=== PATIENT | female | born 1960 | race African-American/Black ===

== ENCOUNTER 2018-11-01 16:19 | Emergency (ER) | payer OTHER ==
--- NOTE | 2018-11-01 16:56 | PDOC ---
Rapid Medical Evaluation Time Seen by Provider: 11/01/18 16:55 Medical Evaluation: Allergies Allergy/AdvReac Type Severity Reaction Status Date / Time ciprofloxacin [From Cipro] Allergy Verified 05/08/18 08:47 11/01/18 16:55 I have performed a brief in-person evaluation of this patient. The patient presents with a chief complaint of:urinary freq w/ hematuria that started several hrs ago. No flank pain, n/v/f/c. H/o utis Pertinent physical exam findings:stable I have ordered the following:ua/ucx The patient will proceed to the ED for further evaluation. Discharge Disposition - Diagnosis Dysuria - Referrals - Patient Instructions - Post Discharge Activity
[2018-11-01 16:59] VITALS: BP 148/80; PULSE 74; TEMP 99.1; BMI 25.4
--- NOTE | 2018-11-01 17:19 | PDOC ---
History of Present Illness - General Chief Complaint: Urinary Problem Stated Complaint: URINARY BURNING Time Seen by Provider: 11/01/18 16:55 History Source: Patient - History of Present Illness Initial Comments: 11/01/18 18:00 58 year old female with dysuria, hematuria and frequency of urination since this afternoon. denies fever/ chills, nausea, vomiting, flank pain Past History - Past Medical History Allergies/Adverse Reactions: Allergies Allergy/AdvReac Type Severity Reaction Status Date / Time ciprofloxacin [From Cipro] Allergy Verified 11/01/18 16:56 Home Medications: Ambulatory Orders Atorvastatin Ca [Lipitor] 20 mg PO HS 03/28/16 Omeprazole [Prilosec (RX)] 20 mg PO DAILY 03/28/16 Phenazopyridine HCl [Pyridium] 100 mg PO TID PRN #6 tablet 11/01/18 Anemia: No Asthma: No Cancer: No Cardiac Disorders: No CVA: No COPD: No CHF: No Dementia: No Diabetes: No GI Disorders: Yes (GERD) Disorders: No HTN: No Hypercholesterolemia: No Liver Disease: No Seizures: No Thyroid Disease: No - Surgical History Abdominal Surgery: Yes (HERNIA X3) Appendectomy: Yes Cardiac Surgery: No Cholecystectomy: No Lung Surgery: No Neurologic Surgery: No Orthopedic Surgery: No - Immunization History Immunization Up to Date: Yes - Suicide/Smoking/Psychosocial Hx Smoking History: Former smoker Have you smoked in the past 12 months: No Information on smoking cessation initiated: No Hx Alcohol Use: No Drug/Substance Use Hx: No Substance Use Type: None Hx Substance Use Treatment: No Review of Systems - Review of Systems Able to Perform ROS?: Yes Is the patient limited Mozambican proficient: No Constitutional: No: Symptoms Reported, See HPI, Chills, Diaphoresis, Fever, Loss of Appetite, Malaise, Night Sweats, Weakness, Weight Stable, Unintentional Wgt. Loss, Unexplained wgt Loss, Other : Yes: Burning, Dysuria, Frequency, Hematuria. No: Symptoms Reported, See HPI , Discharge, Flank Pain, Incontinence, Pain, Urgency, Testicular Mass, Testicular Swelling, Lesions, Testicular Pain, Other *Physical Exam - Vital Signs Last Vital Signs Temp Pulse Resp BP Pulse Ox 99.1 F 74 19 148/80 96 11/01/18 16:56 11/01/18 16:56 11/01/18 16:56 11/01/18 16:56 11/01/18 16:56 - Physical Exam General Appearance: Yes: Appropriately Dressed Gastrointestinal/Abdominal: positive: Normal Bowel Sounds, Soft. negative: Tender Musculoskeletal: positive: Normal Inspection. negative: CVA Tenderness Moderate Sedation - Procedure Monitoring Vital Signs: Procedure Monitoring Vital Signs Temperature 99.1 F 11/01/18 16:56 Pulse Rate 74 11/01/18 16:56 Respiratory Rate 19 11/01/18 16:56 Blood Pressure 148/80 11/01/18 16:56 O2 Sat by Pulse Oximetry (%) 96 11/01/18 16:56 *DC/Admit/Observation/Transfer Diagnosis at time of Disposition: Cystitis - Discharge Dispostion Disposition: HOME - Prescriptions Prescriptions: Phenazopyridine HCl [Pyridium] 100 mg PO TID PRN #6 tablet PRN Reason: dysuria - Referrals Referrals: Violet Rose [Primary Care Provider] - - Patient Instructions Printed Discharge Instructions: Acute Cystitis Additional Instructions: drink plenty of fluids take pyridium as prescribed. take cefuroxime as prescribed follow up with your doctor as soon as possible. Additional Instructions: * Please call your personal physician to report your Emergency Department visit and to report your progress, if any. * If there is no improvement in symptoms in 2 days call your physician. * Return to the Emergency Department for any worsening symptoms. - Post Discharge Activity Forms/Work/School Notes: Back to Work
[2018-11-01] MEDS ORDERED: PHENAZOPYRIDINE HCL 100 MG TABLET (FP) PO ONE (17:23)
[2018-11-01] MEDS ORDERED: PHENAZOPYRIDINE HCL 100 MG TABLET (FP) ONE (17:26)
[2018-11-01 17:37] LABS: URINE APPEARANCE CLOUDY; URINE BILIRUBIN NEGATIVE (<2.0 mg/dL); URINE COLOR AMBER; URINE GLUCOSE (UA) NEGATIVE (NEGATIVE); URINE KETONE NEGATIVE (NEGATIVE); URINE LEUK ESTERASE 2+ (NEGATIVE); URINE NITRITE NEGATIVE (NEGATIVE); URINE PROTEIN 2+ (NEGATIVE)
[2018-11-01 17:54] LABS: EPI CELLS RARE /HPF (FEW); URINE MUCUS RARE; YEAST FEW
[2018-11-01] MEDS ORDERED: CEFUROXIME AXETIL 500 MG TABLET PO ONE (18:00)
== END 2018-11-01 18:09 | disposition home or self-care (01) ==
LOC: JERFT 16:19
DX: N30.00 Acute cystitis without hematuria (principal)
CPT/HCPCS: 81003; 81015; 87086; 87186; 99281-25

== ENCOUNTER 2019-02-13 09:56 | Emergency (ER) | payer OTHER ==
[2019-02-13 10:03] VITALS: BP 116/74; PULSE 65; TEMP 99.1; BMI 25.2
[2019-02-13] MEDS ORDERED: CYCLOBENZAPRINE HCL 10 MG TABLET (FP) PO ONE (10:22)
[2019-02-13] MEDS ORDERED: KETOROLAC TROMETHAMINE 60 MG/2 ML VIAL IM ONE (10:22)
[2019-02-13] MEDS ORDERED: KETOROLAC TROMETHAMINE 60 MG/2 ML VIAL ONE (10:23)
[2019-02-13] MEDS ORDERED: CYCLOBENZAPRINE HCL 10 MG TABLET (FP) ONE (10:23)
--- NOTE | 2019-02-13 10:32 | PDOC ---
History of Present Illness - General Chief Complaint: Headache Stated Complaint: HEADACHE Time Seen by Provider: 02/13/19 10:12 History Source: Patient Exam Limitations: No Limitations - History of Present Illness Initial Comments: 02/13/19 12:01 Patient came to emergency department with complaints of 3-4 days of headache pain. is primarily on the right side but moves over top of scalp intermittently. has some mild ear pain as well. Denies numbness or tingling to hands or feet, denies any mental status changes or any neurologic symptoms. does not suffer from headaches, denies any recent URI symptoms or fever, denies any recent exercise changes or activity but feels has been under stress with both of her jobs. Has taken ibuprofen with some mild resolve Timing/Duration: reports: waxing and waning Severity: Yes: moderate Associated Symptoms: reports: denies symptoms, fever/chills. denies: loss of consciousness Past History - Travel Traveled outside of the country in the last 30 days: No Close contact w/someone who was outside of country & ill: No - Past Medical History Allergies/Adverse Reactions: Allergies Allergy/AdvReac Type Severity Reaction Status Date / Time ciprofloxacin [From Cipro] Allergy Verified 11/01/18 16:56 Home Medications: Ambulatory Orders Cyclobenzaprine HCl 10 mg PO Q8H PRN #14 tablet 02/13/19 Naproxen [Naprosyn -] 500 mg PO BID #30 tablet 02/13/19 Anemia: No Asthma: No Cancer: No Cardiac Disorders: No CVA: No COPD: No CHF: No Dementia: No Diabetes: No GI Disorders: Yes (GERD) Disorders: No HTN: No Hypercholesterolemia: No Liver Disease: No Seizures: No Thyroid Disease: No - Surgical History Abdominal Surgery: Yes (HERNIA X3) Appendectomy: Yes Cardiac Surgery: No Cholecystectomy: No Lung Surgery: No Neurologic Surgery: No Orthopedic Surgery: No - Immunization History Immunization Up to Date: Yes - Suicide/Smoking/Psychosocial Hx Smoking History: Never smoked Have you smoked in the past 12 months: No Information on smoking cessation initiated: No Hx Alcohol Use: No Drug/Substance Use Hx: No Substance Use Type: None Hx Substance Use Treatment: No Neuro Specific PMHX - Complaint Specific PMHX Glaucoma: No Herniated Disk: No Laminectomy: No Migraine: No Review of Systems - Review of Systems Able to Perform ROS?: Yes Is the patient limited Mauritanian proficient: Yes Constitutional: Yes: Symptoms Reported, See HPI, Malaise. No: Chills, Fever HEENTM: Yes: See HPI, Nose Congestion. No: Symptoms Reported, Eye Pain Respiratory: Yes: See HPI. No: Symptoms reported Musculoskeletal: Yes: Symptoms Reported, See HPI, Back Pain, Joint Pain, Muscle Pain Integumentary: Yes: See HPI. No: Symptoms Reported Neurological: Yes: See HPI, Headache. No: Symptoms reported All Other Systems: Reviewed and Negative *Physical Exam - Vital Signs Last Vital Signs Temp Pulse Resp BP Pulse Ox 99.1 F 65 16 116/74 100 02/13/19 10:01 02/13/19 10:01 02/13/19 10:01 02/13/19 10:01 02/13/19 10:01 - Physical Exam General Appearance: Yes: Nourished, Appropriately Dressed, Apparent Distress, Mild Distress, Moderate Distress HEENT: positive: LANCE, Normal ENT Inspection, TMs Normal, Pharynx Normal Neck: positive: Tender, Supple Respiratory/Chest: positive: Lungs Clear, Normal Breath Sounds Gastrointestinal/Abdominal: positive: Soft. negative: Tender Musculoskeletal: positive: Normal Inspection, Muscle Spasm (tight tense musculature to the sternocleidomastoid muscles, pain to head/headache pain is reproduced with pressure at occiput at insertion of SCM, worse on the right than the left.). negative: CVA Tenderness Extremity: positive: Normal Capillary Refill, Normal Inspection, Normal Range of Motion Integumentary: positive: Dry, Warm, Pale Neurologic: positive: experimental box tester II-XII NML intact, Fully Oriented, Alert, Normal Mood/ Affect, Normal Response, Motor Strength 5/5 Progress Note - Progress Note Progress Note: Tension headache, will treat with NSAIDs and cyclobenzaprine *DC/Admit/Observation/Transfer Diagnosis at time of Disposition: Tension headache - Discharge Dispostion Disposition: HOME Condition at time of disposition: Stable Decision to Admit order: No - Prescriptions Prescriptions: Cyclobenzaprine HCl 10 mg PO Q8H PRN #14 tablet PRN Reason: spasm Naproxen [Naprosyn -] 500 mg PO BID #30 tablet - Referrals Referrals: Violet Barbosa [Primary Care Provider] - - Patient Instructions Printed Discharge Instructions: DI for Hormonal and Tension Headaches Additional Instructions: Rest, no heavy lifting or exercise until pain is resolved Hot soaks to neck and low back as often as possible/hot showers or Jacuzzis No massage or therapy until spasm is gone Continue Naprosyn 500 mg tablet, 1 tablet every 8 hours for the next 3 days then as needed for pain and swelling Cyclobenzaprine 1-10mg every 8 hours as needed for spasm If not significant improvement within 24 hours with medication and rest regime, followup with private physician for change in medications and /or therapy. - Post Discharge Activity Forms/Work/School Notes: Back to Work
== END 2019-02-13 10:40 | disposition home or self-care (01) ==
LOC: JERFT 09:56
PROC: 3E0233Z Introduction of Anti-inflammatory into Muscle, Percutaneous Approach (ICD-10-PCS; principal; 2019-02-13)
DX: G44.209 Tension-type headache, unspecified, not intractable (principal)
CPT/HCPCS: 99281-25

== ENCOUNTER 2019-02-17 15:54 | Emergency (ER) | payer OTHER ==
[2019-02-17 16:10] VITALS: TEMP 98.7; BMI 25.2
--- NOTE | 2019-02-17 16:35 | PDOC ---
History of Present Illness - General Chief Complaint: Syncope/Near Syncope Stated Complaint: Syncope/Near Syncope Time Seen by Provider: 02/17/19 16:30 History Source: Patient Exam Limitations: No Limitations - History of Present Illness Initial Comments: 58 yo F with a hx of HLD presents to the emergency department after a syncopal event on the 6th floor of the hospital at approximately 4 pm. Per the patient, she stated she was feeling lightheaded prior to the LOC, but denies the following antecedent symptoms: headache, visual changes, chest pain, SOB, nausea , and vomiting. Per the patient's daughter, the mother slumped over in her chair without hitting her head and regained consciousness 5 minutes later. Afterwards, the patient had 3x N/V episodes NBNB. Currently, the patient feels better. She has been having headaches since last week of which she was evaluated in our emergency department. Denies recent sickness and denies recent sick contacts. Denies the following: fever, chills, abdominal pain, chest pain, SOB, dysuria, hematuria, diarrhea, and hematochezia. no recent travels. Shx: 3x hernias, goiter removal Meds: None Allergies: NKDA Social: Denies tobacco, alcohol. Endorses marijuana use. Past History - Past Medical History Allergies/Adverse Reactions: Allergies Allergy/AdvReac Type Severity Reaction Status Date / Time ciprofloxacin [From Cipro] Allergy Verified 02/17/19 16:07 Home Medications: Ambulatory Orders Cyclobenzaprine HCl 10 mg PO Q8H PRN #14 tablet 02/13/19 Naproxen [Naprosyn -] 500 mg PO BID #30 tablet 02/13/19 Anemia: No Asthma: No Cancer: No Cardiac Disorders: No CVA: No COPD: No CHF: No Dementia: No Diabetes: No GI Disorders: Yes (GERD) Disorders: No HTN: No Hypercholesterolemia: No Liver Disease: No Seizures: No Thyroid Disease: No - Surgical History Abdominal Surgery: Yes (HERNIA X3) Appendectomy: Yes Cardiac Surgery: No Cholecystectomy: No Lung Surgery: No Neurologic Surgery: No Orthopedic Surgery: No - Immunization History Immunization Up to Date: Yes - Suicide/Smoking/Psychosocial Hx Smoking History: Never smoked Have you smoked in the past 12 months: No Information on smoking cessation initiated: No Hx Alcohol Use: No Drug/Substance Use Hx: No Substance Use Type: None Hx Substance Use Treatment: No Review of Systems - Review of Systems Able to Perform ROS?: Yes Is the patient limited Ecuadorean proficient: No Constitutional: No: Chills, Diaphoresis, Fever HEENTM: No: Blurred Vision, Recent change in vision, Ear Pain, Nose Pain, Throat Pain, Mouth Pain Respiratory: No: Cough, Shortness of Breath, Hemoptysis Cardiac (ROS): Yes: Lightheadedness, Syncope. No: Chest Pain, Palpitations ABD/GI: No: Constipated, Diarrhea, Nausea, Poor Appetite, Poor Fluid Intake, Rectal Bleeding, Vomiting, Tarry Stools : No: Burning, Dysuria, Hematuria, Incontinence Musculoskeletal: No: Back Pain, Joint Pain, Neck Pain Integumentary: No: Bruising, Erythema, Rash Neurological: No: Headache, Numbness, Tingling, Tremors, Dizziness Psychiatric: No: Change in Appetite Endocrine: No: Unexplained Weight Gain Hematologic/Lymphatic: No: Anemia *Physical Exam - Vital Signs Last Vital Signs Temp Pulse Resp BP Pulse Ox 98.7 F 75 18 129/78 100 02/17/19 16:08 02/17/19 16:08 02/17/19 16:08 02/17/19 16:08 02/17/19 16:08 - Physical Exam General Appearance: Yes: Nourished, Appropriately Dressed. No: Apparent Distress, Intoxicated HEENT: positive: EOMI, LANCE, Normal ENT Inspection, Normal Voice, Symmetrical, TMs Normal, Pharynx Normal, Hearing Grossly Normal. negative: Pale Conjunctivae , Scleral Icterus (R), Scleral Icterus (L), Muffled/Hoarse voice, Pharyngeal Erythema, Tonsillar Exudate, Tonsillar Erythema, Sinus Tenderness, Excessive drooling Neck: positive: Trachea midline, Supple. negative: Tender, Lymphadenopathy (R) , Lymphadenopathy (L), Tender lateral, Tender midline Respiratory/Chest: positive: Lungs Clear, Normal Breath Sounds. negative: Chest Tender, Respiratory Distress, Accessory Muscle Use, Crackles, Rales, Rhonchi, Stridor, Wheezing, Hyperresonant Cardiovascular: positive: Regular Rhythm, Regular Rate, S1, S2. negative: Systolic Murmur Gastrointestinal/Abdominal: positive: Normal Bowel Sounds, Flat, Soft. negative : Tender, Distended, Guarding, Rebound Lymphatic: negative: Adenopathy Musculoskeletal: positive: Normal Inspection. negative: CVA Tenderness, Vertebral Tenderness Extremity: positive: Normal Capillary Refill, Normal Inspection, Normal Range of Motion. negative: Swelling, Calf Tenderness Integumentary: positive: Normal Color, Dry, Warm. negative: Swelling, Ecchymosis Neurologic: positive: cotton feeder II-XII NML intact, Fully Oriented, Alert, Normal Mood/ Affect, Normal Response, Motor Strength 5/5. negative: Facial Droop, Numbness, Sensory Deficit ED Treatment Course - LABORATORY CBC & Chemistry Diagram: 02/17/19 17:24 02/17/19 17:24 Medical Decision Making - Medical Decision Making 58 yo F with a hx of HLD presents to the emergency department after a syncopal event on the 6th floor of the hospital at approximately 4 pm. Initial vitals: Initial Vital Signs Temp Pulse Resp BP Pulse Ox 98.7 F 75 18 129/78 100 02/17/19 16:08 02/17/19 16:08 02/17/19 16:08 02/17/19 16:08 02/17/19 16:08 Work up: ddx: syncope (cardiogenic vs infectious vs metabolic vs neurologic vs volume status) Laboratory Tests 02/17/19 02/17/19 02/17/19 17:24 17:24 17:24 WBC 4.2 RBC 3.99 Hgb 12.2 Hct 36.8 MCV 92.2 MCH 30.6 MCHC 33.2 RDW 14.7 Plt Count 196 MPV 7.9 Absolute Neuts (auto) 2.7 Neutrophils % 65.5 D Lymphocytes % 27.1 D Monocytes % 5.5 Eosinophils % 0.8 Basophils % 1.1 Nucleated RBC % 0 Sodium 142 Potassium 3.9 Chloride 107 Carbon Dioxide 27 Anion Gap 9 BUN 20 H Creatinine 1.0 Creat Clearance w eGFR 56.75 Random Glucose 100 Calcium 9.0 Total Bilirubin 0.2 AST 16 ALT 17 Alkaline Phosphatase 101 Creatine Kinase 134 Troponin I < 0.02 Total Protein 6.5 Albumin 3.8 TSH 0.71 Free T4 0.90 Urine Color Yellow Urine Appearance Clear Urine pH 7.0 Ur Specific [place] 1.024 Urine Protein Trace Urine Glucose (UA) Negative Urine Ketones Negative Urine Blood Negative Urine Nitrite Negative Urine Bilirubin Negative Urine Urobilinogen 1.0 Ur Leukocyte Esterase Negative 02/17/19 20:00 WBC RBC Hgb Hct MCV MCH MCHC RDW Plt Count MPV Absolute Neuts (auto) Neutrophils % Lymphocytes % Monocytes % Eosinophils % Basophils % Nucleated RBC % Sodium Potassium Chloride Carbon Dioxide Anion Gap BUN Creatinine Creat Clearance w eGFR Random Glucose Calcium Total Bilirubin AST ALT Alkaline Phosphatase Creatine Kinase 117 Troponin I < 0.02 Total Protein Albumin TSH Free T4 Urine Color Urine Appearance Urine pH Ur Specific Rag[place] Urine Protein Urine Glucose (UA) Urine Ketones Urine Blood Urine Nitrite Urine Bilirubin Urine Urobilinogen Ur Leukocyte Esterase EKG shows NSR without ST elevations or depressions. trop negative x2. patient was well appearing throughout the ED stay. was given 1 L of NS fluids. Patient was asymptomatic at the time of discharge. labs wnl. patient to be followed by cardiology after discharge and the patient agrees to the plan. Dispo: Discharge *DC/Admit/Observation/Transfer Diagnosis at time of Disposition: Syncope Qualifiers: Syncope type: unspecified Qualified Code(s): R55 - Syncope and collapse - Discharge Dispostion Disposition: HOME Decision to Admit order: No - Referrals Referrals: Violet Barbosa [Primary Care Provider] - Orlin Briggs MD [Staff Physician] - - Patient Instructions Printed Discharge Instructions: DI for Syncope in Adults (Fainting) Additional Instructions: you were seen in the emergency department for the evaluation of your syncope. please return to the emergency department if you have chest pain, shortness of breath, loss of consciousness, and nausea/vomiting. please follow up with your primary medical doctor in 1 week aftr discharge for follow up care. Please follow up with the interactive developer in 1 week after discharge. thank you. - Post Discharge Activity Forms/Work/School Notes: Back to Work
[2019-02-17] MEDS ORDERED: ACETAMINOPHEN 1000 MG/100 ML VIAL (NON FORMULARY) IVPB ONE (16:36)
[2019-02-17] MEDS ORDERED: SODIUM CHLORIDE 500 ML IV STA (16:36)
--- NOTE | 2019-02-17 16:45 | PDOC ---
Attending Attestation - Resident Resident Name: Cristhian De Guzman - ED Attending Attestation I have performed the following: I have examined & evaluated the patient, The case was reviewed & discussed with the resident, I agree w/resident's findings & plan - HPI HPI: 02/18/19 11:17 58 YOF presenting with syncopal episode while visiting her niece at [facility] who was admitted today. prodromal sx of dizziness, no cp or sob. brief LOC, no trauma, no incontinence or tongue biting or shaking activity had some n/v after episode, back to baseline upon arrival to ED she admits to stressors at home and work. no tobacco or etoh or drug use of note, she has had headache, recently eval about 1 week ago. 02/18/19 12:58 - Physicial Exam PE: 02/17/19 19:05 Agree with the resident's HPI and PE as documented in the electronic medical record. NAD, well appearing, alert and oriented to person time and place, speech clear, PERRL, EOMI, MMM, nl conjunctiva, anicteric; no tongue lacs. neck supple. lungs clear, RRR, abdomen soft nontender. EDWARDS x4, no focal neuro deficits. No peripheral edema. normal color for ethnicity, WWP. 02/18/19 11:18 - Medical Decision Making 02/17/19 18:03 See HPI for details Vital signs reviewed, wnl. DDx. syncope: considered interval abnormalities including short QTC or long QT syndrome, WPW, conduction abnormality, Brugada, ACS, PE, electrolyte disturbances, metabolic derangement. Considered but clinically doubt based on HPI and PE: PE or ACS. Prior notes reviewed, including admissions, discharges and consultations. laboratory results and imaging reviewed, basic labs and lytes wnl CXR_no acute chest pathology, normal silhouette, no effusion/edema. Cardiac panel_neg x1, repeat Trop/ekg EKG normal sinus rhythm, no interval abnormalities, narrow QRS, ST and T wave segments and morphology normal. similar to prior ED course - no events, feels improved. most likely vasovagal event. - CTH neg for pathology - delta trop and EKG s/o pending reeval, 2nd trop ekg and ultimate dispo. anticipate discharge. 02/17/19 18:09 02/17/19 19:03 02/18/19 11:19 02/18/19 11:19 Heart Score/ECG Review #1 ECG reviewed & interpreted by me at: 15:55 General ECG Interpretation: Sinus Rhythm, Normal Rate, Normal Intervals Compared to previous ECG there are: No significant change 02/17/19 18:10 EKG normal sinus rhythm at 66 bpm, no interval abnormalities, narrow QRS, ST and T wave segments and morphology normal. similar to prior
[2019-02-17] MEDS ORDERED: ACETAMINOPHEN INJECTION 100 ML IVPB ONE (17:32)
[2019-02-17 17:44] LABS: BASO % 1.1 % (0-2.0); EOS % 0.8 % (0-4.5); HEMATOCRIT 36.8 % (32.4-45.2); HEMOGLOBIN 12.2 GM/dL (10.7-15.3); LYMPH % 27.1 % (8-40); MCH 30.6 pg (25.7-33.7); MCHC 33.2 g/dl (32.0-36.0); MEAN CELL VOLUME 92.2 fl (80-96); MEAN PLT VOLUME 7.9 fl (7.5-11.1); MONO % 5.5 % (3.8-10.2); NEUT % 65.5 % (42.8-82.8); PLATELET COUNT 196 K/MM3 (134-434); RBC 3.99 M/mm3 (3.60-5.2); RDW 14.7 % (11.6-15.6); WHITE BLOOD COUNT 4.2 K/mm3 (4.0-10.0)
[2019-02-17 18:18] LABS: ALBUMIN 3.8 g/dl (3.4-5.0); ALK PHOS 101 U/L (45-117); ANION GAP 9 MMOL/L (8-16); BILIRUBIN,TOTAL 0.2 mg/dL (0.2-1); BLOOD UREA NITROGEN 20 mg/dL (7-18); CHLORIDE 107 mmol/L (98-107); CO2 27 mmol/L (21-32); GLUCOSE,RANDOM 100 mg/dL (74-106); POTASSIUM 3.9 mmol/L (3.5-5.1); SGOT/AST 16 U/L (15-37); SGPT/ALT 17 U/L (13-61); SODIUM 142 mmol/L (136-145); TOT PROT 6.5 g/dl (6.4-8.2)
[2019-02-17 19:31] LABS: URINE APPEARANCE CLEAR; URINE BILIRUBIN NEGATIVE (NEGATIVE); URINE COLOR YELLOW; URINE GLUCOSE (UA) NEGATIVE (NEGATIVE); URINE KETONE NEGATIVE (NEGATIVE); URINE LEUK ESTERASE NEGATIVE (NEGATIVE); URINE NITRITE NEGATIVE (NEGATIVE); URINE PROTEIN TRACE (NEGATIVE)
[2019-02-17 21:13] VITALS: BP 142/61; PULSE 72
--- NOTE | 2019-02-18 12:33 | EKG ---
Test Reason : Blood Pressure : / mmHG Vent. Rate : 054 BPM Atrial Rate : 054 BPM P-R Int : 168 ms QRS Dur : 084 ms QT Int : 438 ms P-R-T Axes : 062 058 050 degrees QTc Int : 415 ms SINUS BRADYCARDIA WITH MARKED SINUS ARRHYTHMIA OTHERWISE NORMAL ECG Confirmed by MD DALE, BALTAZAR ([id number]) on 02/18/2019 12:32:58 PM Referred By: Confirmed By:BALTAZAR HUNTER MD
--- NOTE | 2019-02-18 12:36 | EKG ---
Test Reason : Blood Pressure : / mmHG Vent. Rate : 071 BPM Atrial Rate : 071 BPM P-R Int : 152 ms QRS Dur : 070 ms QT Int : 368 ms P-R-T Axes : 058 040 038 degrees QTc Int : 399 ms POOR DATA QUALITY, INTERPRETATION MAY BE ADVERSELY AFFECTED NORMAL SINUS RHYTHM NORMAL ECG Confirmed by MD DALE, BALTAZAR ([id number]) on 02/18/2019 12:35:56 PM Referred By: Confirmed By:BALTAZAR HUNTER MD
== END 2019-02-17 21:20 | disposition home or self-care (01) ==
LOC: JER 15:54
PROC: 3E0337Z Introduction of Electrolytic and Water Balance Substance into Peripheral Vein, Percutaneous Approach (ICD-10-PCS; principal; 2019-02-17)
PROC: 3E033NZ Introduction of Analgesics, Hypnotics, Sedatives into Peripheral Vein, Percutaneous Approach (ICD-10-PCS; 2019-02-17)
DX: R55 Syncope and collapse (principal)
CPT/HCPCS: 36415; 70450-TC; 71045-TC-FY; 80053; 81003; 82550; 84439; 84443; 84484; 85025; 87086; 87186; 93005; 93010; 99284-25; J0131

== ENCOUNTER 2019-06-25 08:03 | Emergency (ER) | payer OTHER ==
[2019-06-25 08:07] VITALS: BP 121/79; PULSE 64; TEMP 98.2; BMI 25.2
[2019-06-25] MEDS ORDERED: DEXAMETHASONE SOD PHOSPHATE 10 MG/1 ML VIAL IM ONE (08:30)
[2019-06-25] MEDS ORDERED: DEXAMETHASONE SOD PHOSPHATE 10 MG/1 ML VIAL ONE (08:31)
--- NOTE | 2019-06-25 08:35 | PDOC ---
History of Present Illness - General Chief Complaint: Eye Problem Stated Complaint: ALLERGIC REACTION Time Seen by Provider: 06/25/19 08:27 History Source: Patient Exam Limitations: Clinical Condition - History of Present Illness Initial Comments: 06/25/19 08:36 Patient with no significant past medical history present with complaint of 2 day history of worsening swelling to bilateral upper eyelids after placing fake eyelashes. Patient reported removing fake eyelashes this morning and started having itching and sore worsening swelling to bilateral upper eyelids. Denies eye pain, blurry vision or change in vision. Denies choking sensation, shortness of breath, lip or tongue swelling. Denies any other symptoms Timing/Duration: other (2 days) Past History - Past Medical History Allergies/Adverse Reactions: Allergies Allergy/AdvReac Type Severity Reaction Status Date / Time ciprofloxacin [From Cipro] Allergy Verified 06/25/19 08:07 Home Medications: Ambulatory Orders Cyclobenzaprine HCl 10 mg PO Q8H PRN #14 tablet 02/13/19 Naproxen [Naprosyn -] 500 mg PO BID #30 tablet 02/13/19 Nitrofurantoin Monohyd/M-Cryst [Macrobid -] 100 mg PO BID #14 capsule 02/21/19 Famotidine [Pepcid -] 20 mg PO BID 4 Days #8 tablet 06/25/19 predniSONE [Deltasone -] 20 mg PO BID 3 Days #6 tablet 06/25/19 Anemia: No Asthma: No Cancer: No Cardiac Disorders: No CVA: No COPD: No CHF: No Dementia: No Diabetes: No GI Disorders: Yes (GERD) Disorders: No HTN: No Hypercholesterolemia: No Liver Disease: No Seizures: No Thyroid Disease: No - Surgical History Abdominal Surgery: Yes (HERNIA X3) Appendectomy: Yes Cardiac Surgery: No Cholecystectomy: No Lung Surgery: No Neurologic Surgery: No Orthopedic Surgery: No - Immunization History Immunization Up to Date: Yes - Suicide/Smoking/Psychosocial Hx Smoking History: Never smoked Have you smoked in the past 12 months: No Hx Alcohol Use: No Drug/Substance Use Hx: No Substance Use Type: None Hx Substance Use Treatment: No Review of Systems - Review of Systems Able to Perform ROS?: Yes Is the patient limited Hungarian proficient: No Constitutional: No: Fever, Malaise, Weakness HEENTM: Yes: Symptoms Reported, See HPI. No: Eye Pain (eyelids swelling), Blurred Vision, Tearing, Recent change in vision, Double Vision, Cataracts, Ear Pain, Ocular Prothesis, Ear Discharge, Nose Pain, Nose Congestion, Tinnitus, Nose Bleeding, Hearing Loss, Throat Pain, Throat Swelling, Mouth Pain, Dental Problems, Difficulty Swallowing, Mouth Swelling, Other Respiratory: No: Symptoms reported, See HPI, Cough, Orthopnea, Shortness of Breath, SOB with Exertion, SOB at Rest, Stridor, Wheezing, Productive cough, Hemoptysis, Other Cardiac (ROS): No: Symptoms Reported, See HPI, Chest Pain, Edema, Irregular Heart Rate, Lightheadedness, Palpitations, Syncope, Chest Tightness, Other ABD/GI: No: Nausea, Vomiting Musculoskeletal: No: Symptoms Reported Integumentary: Yes: Symptoms Reported, See HPI, Erythema (mild redness to upper eyelid), Other (swelling of upper eyelids) Neurological: No: Headache, Dizziness All Other Systems: Reviewed and Negative *Physical Exam - Vital Signs Last Vital Signs Temp Pulse Resp BP Pulse Ox 98.2 F 64 18 121/79 98 06/25/19 08:05 06/25/19 08:05 06/25/19 08:05 06/25/19 08:05 06/25/19 08:05 - Physical Exam Comments: 06/25/19 08:41 GENERAL: Well developed, well nourished. Awake and alert. No acute distress. HEENT: Mild swelling to bilateral upper eyelids. Normocephalic, atraumatic. PERRLA, EOMI. No conjunctival pallor. Sclera are non-icteric. Moist mucous membranes. Oropharynx is clear. NECK: Supple. Full ROM. CARDIOVASCULAR: Regular rate and rhythm. No murmurs, rubs, or gallops. Distal pulses are 2+ and symmetric. PULMONARY: No evidence of respiratory distress. Lungs clear to auscultation bilaterally. No wheezing, rales or rhonchi. MUSCULOSKELETAL Normal range of motion at all joints. SKIN: Warm and dry. Normal capillary refill. Mild swelling to bilateral upper eyelids with localize mild erythema to upper eyelids. NEUROLOGICAL: Alert, awake, appropriate. Gait is normal without ataxia. PSYCHIATRIC: Cooperative. Good eye contact. Appropriate mood General Appearance: Yes: Nourished, Appropriately Dressed. No: Apparent Distress Medical Decision Making - Medical Decision Making 06/25/19 08:37 Patient with no significant past medical history present with complaint of 2 day history of worsening swelling to bilateral upper eyelids after placing fake eyelashes. Patient reported removing fake eyelashes this morning and started having itching and sore worsening swelling to bilateral upper eyelids. Denies eye pain, blurry vision or change in vision. Denies choking sensation, shortness of breath, lip or tongue swelling. Denies any other symptoms Exam significant for mild swelling to bilateral upper eyelids. No open wound or discharge from eyelids. Conjunctiva normal and sclera are clear. No tenderness to eyelids. Oropharynx patent. Symptoms likely ALLERGIC reaction from eyelashes. Decadron 10 mg IM ordered for ALLERGIC reaction. Will hold off on Benadryl given patient is driving. patient be discharged home on 3 day course of prednisone and Pepcid for antihistamine effect with strict follow-up. Plan discussed with patient and patient agrees with plan. Patient stable for discharge *DC/Admit/Observation/Transfer Diagnosis at time of Disposition: Superficial swelling of eyelid Allergic reaction Qualifiers: Encounter type: initial encounter Qualified Code(s): T78.40XA - Allergy, unspecified, initial encounter - Discharge Dispostion Disposition: HOME Condition at time of disposition: Stable Decision to Admit order: No - Prescriptions Prescriptions: Famotidine [Pepcid -] 20 mg PO BID 4 Days #8 tablet predniSONE [Deltasone -] 20 mg PO BID 3 Days #6 tablet - Referrals Referrals: Sohail Johns MD [Staff Physician] - - Patient Instructions Printed Discharge Instructions: DI for Eye Allergic Reaction Additional Instructions: Take medications as prescribed. Come back to ED if worsening swelling, shortness of breathe, chocking sensation otherwise follow-up with ophthalmology as needed - Post Discharge Activity
== END 2019-06-25 08:47 | disposition home or self-care (01) ==
LOC: JERFT 08:03
PROC: 3E023GC Introduction of Other Therapeutic Substance into Muscle, Percutaneous Approach (ICD-10-PCS; principal; 2019-06-25)
DX: H02.89 Other specified disorders of eyelid (principal); T78.40XA Allergy, unspecified, initial encounter; K21.9 Gastro-esophageal reflux disease without esophagitis
CPT/HCPCS: 99281-25; J1100

== ENCOUNTER 2020-10-22 09:20 | Emergency (ER) | payer OTHER ==
[2020-10-22 09:32] VITALS: BP 111/69; PULSE 60; TEMP 98.9; BMI 25.0
[2020-10-22] MEDS ORDERED: ACETAMINOPHEN 500 MG TABLET (FP) PO ONE (09:45)
[2020-10-22] MEDS ORDERED: ACETAMINOPHEN 500 MG TABLET (FP) ONE (10:14)
[2020-10-22] MEDS ORDERED: IBUPROFEN 600 MG TABLET (FP) PO ONE ×2 (10:36→10:46)
== END 2020-10-22 10:57 | disposition home or self-care (01) ==
LOC: FER 09:20
DX: M79.602 Pain in left arm (principal); R22.32 Localized swelling, mass and lump, left upper limb
CPT/HCPCS: 73090-TC-LT-FY; 73110-TC-LT-FY; 73130-TC-LT-FY; 99284-25

== ENCOUNTER 2021-08-05 20:42 | Emergency (ER) | payer OTHER ==
[2021-08-05 20:57] VITALS: BP 132/85; PULSE 68; TEMP 98.2; BMI 22.4
[2021-08-05] MEDS ORDERED: IBUPROFEN 600 MG TABLET (FP) PO ONE ×2 (21:43→21:44)
== END 2021-08-05 21:48 | disposition home or self-care (01) ==
LOC: FER 20:42
DX: S70.12XA Contusion of left thigh, initial encounter (principal); W50.0XXA Accidental hit or strike by another person, initial encounter; Y92.9 Unspecified place or not applicable
CPT/HCPCS: 99283-25

== ENCOUNTER 2022-03-27 09:09 | Emergency (ER) | payer OTHER ==
[2022-03-27 09:17] VITALS: BMI 25.7
[2022-03-27] MEDS ORDERED: ONDANSETRON 4 MG/2 ML VIAL IVPUSH ONE (10:47)
[2022-03-27] MEDS ORDERED: SODIUM CHLORIDE 0.9% 500 ML INFUS.BAG IV ONE (10:47)
[2022-03-27] MEDS ORDERED: ONDANSETRON 4 MG/2 ML VIAL ONE (11:04)
[2022-03-27] MEDS ORDERED: ACETAMINOPHEN 1000 MG/100 ML BAG IVPB ONE (11:13)
[2022-03-27] MEDS ORDERED: ACETAMINOPHEN INJECTION 100 ML IVPB ONE (11:45)
[2022-03-27 13:09] LABS: HEMATOCRIT 39.8 % (32.4-45.2); HEMOGLOBIN 13.4 GM/dL (10.7-15.3); MCH 30.4 pg (25.7-33.7); MCHC 33.6 g/dl (32.0-36.0); MEAN CELL VOLUME 90.2 fl (80-96); MEAN PLT VOLUME 7.9 fl (7.5-11.1); PLATELET COUNT 234 10^3/uL (134-434); RBC 4.41 M/mm3 (3.60-5.2); RDW 14.9 % (11.6-15.6); WHITE BLOOD COUNT 7.4 K/mm3 (4.0-10.0)
[2022-03-27 13:32] LABS: BLOOD UREA NITROGEN 17.8 mg/dL (7-18); CALCIUM 9.3 mg/dL (8.5-10.1)
[2022-03-27 13:33] LABS: ALBUMIN 3.7 g/dl (3.4-5.0)
[2022-03-27 13:35] LABS: PHOSPHOROUS 2.9 mg/dL (2.5-4.9)
[2022-03-27 13:36] LABS: CREATININE 0.9 mg/dL (0.55-1.3)
[2022-03-27 13:37] LABS: BILIRUBIN,TOTAL 0.4 mg/dL (0.2-1); TOT PROT 6.9 g/dl (6.4-8.2)
[2022-03-27 14:55] LABS: ANISOCYTOSIS 1+; MACROCYTOSIS 0; OVALOCYTE 2+; TEAR DROP CELLS 1+
[2022-03-27 14:56] LABS: URINE APPEARANCE CLEAR; URINE BILIRUBIN NEGATIVE (NEGATIVE); URINE COLOR YELLOW; URINE GLUCOSE (UA) NEGATIVE (NEGATIVE); URINE KETONE NEGATIVE (NEGATIVE); URINE LEUK ESTERASE NEGATIVE (NEGATIVE); URINE NITRITE NEGATIVE (NEGATIVE); URINE PROTEIN NEGATIVE (NEGATIVE); URINE UROBILINOGEN 0.2 mg/dL (0.2-1.0)
[2022-03-27 15:57] VITALS: BP 121/71; PULSE 78; TEMP 98.1
== END 2022-03-27 15:57 | disposition home or self-care (01) ==
LOC: JER 09:09
PROC: 3E033GC Introduction of Other Therapeutic Substance into Peripheral Vein, Percutaneous Approach (ICD-10-PCS; principal; 2022-03-27)
DX: R11.0 Nausea (principal)
CPT/HCPCS: 0241U-QW; 36415; 80053; 81003; 83735; 84100; 85025; 87086; 87186; 99284-25

== ENCOUNTER 2022-03-30 14:05 | Emergency (ER) | payer OTHER ==
[2022-03-30 14:50] VITALS: BP 100/69; PULSE 60; TEMP 98.3; BMI 25.2
[2022-03-30] MEDS ORDERED: ACETAMINOPHEN 325 MG TABLET (FP) PO ONE (16:08)
[2022-03-30] MEDS ORDERED: MAG HYDROX/AL HYDROX/SIMETH -MYLANTA- ORAL SUSPENSION PO ONE (16:08)
[2022-03-30] MEDS ORDERED: FAMOTIDINE 20 MG/50 ML IVPB 20 MG in PREMIX 50 IVPB ONE (16:08)
[2022-03-30] MEDS ORDERED: FAMOTIDINE 20 MG/50 ML IVPB 20 MG/50 ML MG IVPB ONE (17:35)
[2022-03-30] MEDS ORDERED: MAG HYDROX/AL HYDROX/SIMETH 30 ML UNIT-DOSE CUP ONE (17:35)
[2022-03-30] MEDS ORDERED: ACETAMINOPHEN 325 MG TABLET (FP) ONE (17:35)
[2022-03-30 18:48] LABS: EOS % 1.1 % (0-4.5); HEMATOCRIT 37.4 % (32.4-45.2); HEMOGLOBIN 12.5 GM/dL (10.7-15.3); LYMPH % 44.5 % (8-40); MCH 30.5 pg (25.7-33.7); MCHC 33.5 g/dl (32.0-36.0); MEAN CELL VOLUME 91.2 fl (80-96); MEAN PLT VOLUME 8.3 fl (7.5-11.1); MONO % 8.3 % (3.8-10.2); NEUT % 45.1 % (42.8-82.8); PLATELET COUNT 228 10^3/uL (134-434)
[2022-03-30 19:08] LABS: CALCIUM 9.6 mg/dL (8.5-10.1)
[2022-03-30 19:13] LABS: CREATININE 0.8 mg/dL (0.55-1.3)
[2022-03-30 19:14] LABS: BILIRUBIN,TOTAL 0.5 mg/dL (0.2-1)
[2022-03-30 19:45] LABS: VENOUS BASE EXCESS 2.4 mmol/L (-2-2); VENOUS O2 SATURATION 46.9 % (70-80); VENOUS PH 7.394 (7.310-7.410)
== END 2022-03-30 23:20 | disposition home or self-care (01) ==
LOC: JER 14:05
PROC: 3E033GC Introduction of Other Therapeutic Substance into Peripheral Vein, Percutaneous Approach (ICD-10-PCS; principal; 2022-03-30)
DX: R10.9 Unspecified abdominal pain (principal)
CPT/HCPCS: 36415; 74177-TC; 80053; 82803; 83605; 83690; 85025; 93005; 93010; 99285-25; Q9967

== ENCOUNTER 2022-04-14 21:44 | Emergency (ER) | payer OTHER ==
[2022-04-14 21:56] VITALS: BP 124/76; PULSE 74; TEMP 98.5; BMI 25.2
[2022-04-14] MEDS ORDERED: IBUPROFEN 600 MG TABLET (FP) PO ONE ×2 (22:23)
== END 2022-04-14 23:13 | disposition home or self-care (01) ==
LOC: FER 21:44
DX: S93.601A Unspecified sprain of right foot, initial encounter (principal); X50.0XXA Overexertion from strenuous movement or load, initial encounter
CPT/HCPCS: 73630-TC-RT-FY; 99283-25

== ENCOUNTER 2024-04-01 12:03 | Emergency (ER) | payer OTHER ==
[2024-04-01 12:12] VITALS: BP 111/74; PULSE 76; RESP 18; TEMP 99.2; BMI 26.2
[2024-04-01 13:41] LABS: BASO % 1.1 % (0-2.0); EOS % 0.9 % (0-4.5); HEMATOCRIT 40.2 % (32.4-45.2); HEMOGLOBIN 13.3 GM/dL (10.7-15.3); LYMPH % 35.7 % (8-40); MCH 30.1 pg (25.7-33.7); MEAN CELL VOLUME 91.2 fl (80-96); MEAN PLT VOLUME 7.2 fl (7.5-11.1); MONO % 5.3 % (3.8-10.2); PLATELET COUNT 253 10^3/uL (134-434); RDW 15.1 % (11.6-15.6); WHITE BLOOD COUNT 3.9 K/mm3 (4.0-10.0)
[2024-04-01 13:48] LABS: INR 1.1 (0.83-1.09); PROTHROMBIN TIME (PATIENT) 12.6 SEC (9.7-13.0)
[2024-04-01 13:51] LABS: ACTIVATED PTT 36.2 SECONDS (25.2-36.5)
[2024-04-01 14:01] LABS: POTASSIUM 4.2 mmol/L (3.5-5.1)
[2024-04-01 14:03] LABS: BLOOD UREA NITROGEN 14.9 mg/dL (7-18); CALCIUM 9.7 mg/dL (8.5-10.1)
[2024-04-01 14:04] LABS: ALBUMIN 3.9 g/dl (3.4-5.0)
[2024-04-01 14:08] LABS: BILIRUBIN,TOTAL 0.5 mg/dL (0.2-1); TOT PROT 6.8 g/dl (6.4-8.2)
[2024-04-01] MEDS ORDERED: ACETAMINOPHEN INJECTION 100 ML IVPB ONE (14:21)
[2024-04-01] MEDS ORDERED: LIDOCAINE 4% PATCH TP ONE (14:22)
[2024-04-01] MEDS ORDERED: KETOROLAC TROMETHAMINE 15 MG/ML VIAL ONE (14:22)
[2024-04-01] MEDS: ACETAMINOPHEN 1000 MG/100 ML BAG IVPB ONE (14:27)
[2024-04-01] MEDS: KETOROLAC TROMETHAMINE 15 MG/ML VIAL IVPUSH ONE (14:28)
[2024-04-01] MEDS: LIDOCAINE 4% PATCH TP ONE (14:28)
== END 2024-04-01 14:44 | disposition home or self-care (01) ==
LOC: JER 12:03
PROC: 3E033NZ Introduction of Analgesics, Hypnotics, Sedatives into Peripheral Vein, Percutaneous Approach (ICD-10-PCS; principal; 2024-04-01)
PROC: 3E0333Z Introduction of Anti-inflammatory into Peripheral Vein, Percutaneous Approach (ICD-10-PCS; 2024-04-01)
DX: M25.512 Pain in left shoulder (principal); R20.2 Paresthesia of skin; M54.6 Pain in thoracic spine; M54.2 Cervicalgia; R06.02 Shortness of breath; Z20.822 Contact with and (suspected) exposure to COVID-19
CPT/HCPCS: 0241U-QW; 36415; 71046-TC-FY; 80053; 84484; 85025; 85610; 85730; 93005; 93010; 99285-25; J0131

== ENCOUNTER 2024-04-02 09:31 | Emergency (ER) | payer OTHER ==
[2024-04-02 09:43] VITALS: BP 151/71; PULSE 55; RESP 18; TEMP 97.7; BMI 26.2
[2024-04-02] MEDS ORDERED: LIDOCAINE 4% PATCH TP ONE (10:02)
[2024-04-02] MEDS ORDERED: METHOCARBAMOL 500 MG TABLET ONE (10:03)
[2024-04-02] MEDS: METHOCARBAMOL 500 MG TABLET PO ONE (10:08)
[2024-04-02] MEDS: LIDOCAINE 5% TOPICAL PATCH TP ONE (10:08)
[2024-04-02] MEDS ORDERED: KETOROLAC TROMETHAMINE 30 MG/1 ML VIAL ONE (12:38)
[2024-04-02] MEDS: KETOROLAC TROMETHAMINE 30 MG/1 ML VIAL IM ONE (12:51)
== END 2024-04-02 13:25 | disposition home or self-care (01) ==
LOC: JER 09:31
PROC: 3E0133Z Introduction of Anti-inflammatory into Subcutaneous Tissue, Percutaneous Approach (ICD-10-PCS; principal; 2024-04-02)
DX: M62.838 Other muscle spasm (principal); M54.2 Cervicalgia; M25.512 Pain in left shoulder; R20.0 Anesthesia of skin; R07.89 Other chest pain
CPT/HCPCS: 72125-TC; 73030-TC-LT-FY; 93005; 93010; 99285-25

== ENCOUNTER 2024-05-16 06:37 | Emergency (ER) | payer OTHER ==
[2024-05-16] MEDS ORDERED: LORATADINE 10 MG TABLET ONE (07:12)
[2024-05-16] MEDS: diphenhydrAMINE HCL 50 MG CAPSULE PO ONE (07:14)
[2024-05-16] MEDS: LORATADINE 10 MG TABLET PO ONE (07:14)
[2024-05-16 07:21] VITALS: BP 146/90; PULSE 60; RESP 20; TEMP 98.6; BMI 26.2
== END 2024-05-16 08:06 | disposition home or self-care (01) ==
LOC: JER 06:37
DX: T78.49XA Other allergy, initial encounter (principal); L23.1 Allergic contact dermatitis due to adhesives; H02.841 Edema of right upper eyelid; H02.844 Edema of left upper eyelid; H02.89 Other specified disorders of eyelid
CPT/HCPCS: 99283-25

== ENCOUNTER 2024-05-23 04:58 | Day surgery (SDC) | payer OTHER ==
[2024-05-21 13:55] VITALS: BMI 25.7
[2024-05-23] MEDS ORDERED: DEXAMETHASONE SOD PHOSPHATE 10 MG/1 ML VIAL ONE (07:28)
[2024-05-23] MEDS ORDERED: LIDOCAINE HCL/PF 1% SDV 5ML VIAL ONE (07:28)
[2024-05-23] MEDS: LIDOCAINE HCL 1% PRESERVATIVE FREE - 30ML VIAL NR ONE (10:54)
[2024-05-23] MEDS: DEXAMETHASONE SOD PHOSPHATE 10 MG/1 ML VIAL IM ONE (10:54)
[2024-05-23] MEDS: IOHEXOL 180 MG/1 ML ML IJ ONE (10:54)
[2024-05-23 11:16] VITALS: BP 125/76; PULSE 52; RESP 18; TEMP 97.3
[2024-05-23] MEDS ORDERED: ACETAMINOPHEN 500 MG TABLET (FP) PO PRN (11:41)
== END 2024-05-23 11:29 | disposition home or self-care (01) ==
LOC: JASU-SURG 04:58
PROVIDERS: ATTEND Pain Medicine Pain Medicine
PROC: 3E0R3BZ Introduction of Anesthetic Agent into Spinal Canal, Percutaneous Approach (ICD-10-PCS; 2024-05-23)
PROC: 3E0R33Z Introduction of Anti-inflammatory into Spinal Canal, Percutaneous Approach (ICD-10-PCS; principal; 2024-05-23 10:15)
DX: M54.12 Radiculopathy, cervical region (principal)
CPT/HCPCS: 76000-TC-FY; J1100

== ENCOUNTER 2024-12-16 06:44 | Emergency (ER) | payer OTHER ==
[2024-12-16 06:52] VITALS: BP 107/92; PULSE 60; RESP 16; TEMP 99.7; BMI 25.0
== END 2024-12-16 07:03 | disposition home or self-care (01) ==
LOC: FER 06:44
DX: R22.0 Localized swelling, mass and lump, head (principal)
CPT/HCPCS: 99283-25